=== PATIENT | male | born 1990 | race Caucasian/White ===

== ENCOUNTER 2019-07-07 19:17 | Emergency (ER) | payer SELFPAY ==
--- NOTE | 2019-07-07 20:13 | RADIOLOGY REPORT (SQ) ---
EXAM DESCRIPTION: XR CHEST 1 VIEW COMPLETED DATE/TME: 07/07/2019 00:00 CLINICAL HISTORY: 28 years, Male, fever COMPARISON: None. NUMBER OF VIEWS: One TECHNIQUE: Single frontal view of the chest was obtained portably LIMITATIONS: None. FINDINGS: Cardiac and mediastinal contours are normal in appearance. Lungs are clear. No pleural effusion or pneumothorax. IMPRESSION: No acute disease. copyright 2010 [employer]- All Rights Reserved
[2019-07-07] MEDS ORDERED: ONDANSETRON HCL INJ/PF 4 MG/2 ML SDV IV ONE (20:24)
[2019-07-07] MEDS ORDERED: NORMAL SALINE 1000 ML 1,000 ML IV ONE ×3 (20:24→21:58)
--- NOTE | 2019-07-07 20:30 | ER Document Report ---
ED General - General Chief Complaint: Nausea/Vomiting Stated Complaint: FEVER,VOMITTING Time Seen by Provider: 07/07/19 20:08 Primary Care Provider: PARISH LE [NO LOCAL MD] - Follow up as needed Notes: Patient is a 28 year old male that comes to the Emergency Department for chief complaint of vomiting persistently since last night, he states he has had a mild cough and some body aches as well. He denies fevers or chills, shortness of breath, chest pain, particular areas of abdominal pain, flank pain, sinus conge stion, headache. He states he was down in [place] and down in [place] within the past couple weeks pending a move. He denies any obvious exposures. He denies any daily medications or diagnosed medical history. He states that he smokes cigarettes, denies frequent alcohol or recent alcohol, denies recreational drugs. - Related Data Allergies/Adverse Reactions: Sulfa (Sulfonamide Antibiotics) Allergy (Verified 07/07/19 19:21) Past Medical History - General Information source: Patient - Social History Smoking Status: Never Smoker Frequency of alcohol use: None Drug Abuse: None Lives with: Family Family History: Reviewed & Not Pertinent Patient has suicidal ideation: No Patient has homicidal ideation: No - Medical History Medical History: Negative Surgical Hx: Negative - Immunizations Immunizations up to date: Yes Hx Diphtheria, Pertussis, Tetanus Vaccination: Yes Review of Systems - Review of Systems Constitutional: See HPI EENT: No symptoms reported Cardiovascular: No symptoms reported Respiratory: See HPI Gastrointestinal: See HPI Genitourinary: No symptoms reported Male Genitourinary: No symptoms reported Musculoskeletal: No symptoms reported Skin: No symptoms reported Hematologic/Lymphatic: No symptoms reported Neurological/Psychological: No symptoms reported Physical Exam - Vital signs Vitals: Temp Pulse Resp BP Pulse Ox 99.9 F 140 H 18 169/110 H 98 07/07/19 19:18 07/07/19 19:18 07/07/19 19:18 07/07/19 19:18 07/07/19 19:18 - Notes Notes: GENERAL: Alert but somewhat pale appearing HEAD: Normocephalic, atraumatic. EYES: Pupils equal, round, and reactive to light. Extraocular movements intact. ENT: Oral mucosa parched, tongue midline. Oropharynx unremarkable. Airway patent. LUNGS: Clear to auscultation bilaterally, no wheezes, rales, or rhonchi. No respiratory distress. HEART: Tachycardia, normal rhythm, no murmur ABDOMEN: Generalized tenderness of the upper abdomen, lower abdomen is benign. Bowel sounds are present. GENITOURINARY: Deferred EXTREMITIES: Moves all 4 extremities spontaneously. No edema, normal radial and dorsalis pedis pulses bilaterally. No cyanosis. BACK: no cervical, thoracic, lumbar midline tenderness. No saddle anesthesia, normal distal neurovascular exam. Moves all extremities in full range of motion. NEUROLOGICAL: Alert and oriented x3. Normal speech. Cranial nerves II through XII grossly intact. PSYCH: Normal affect, normal mood. SKIN: Pale Course - Re-evaluation Re-evalutation: Patient initially slightly pale, has parched mucous membranes, he is very tachycardic. He has generalized upper abdominal pain. No specific area of guarding, lower abdomen is benign. No fever. Chest x-ray reviewed and negative. Patient does not endorse any particular cough, has had occasional coughing in between vomiting. No fever or congestion. No recent travel or exposures. CBC unremarkable, chemistry shows elevated LFTs, elevated lipase borderline in the 300s, slightly elevated bilirubin. Anion gap is elevated at 27. Patient given multiple IV fluid boluses. He was given nausea medication. After this he was able to urinate. Urine shows a lot of ketones. Because of abnormal labs with upper abdominal pain ultrasound of the abdomen was performed, borderline common bile duct, no cholecystitis or cholelithiasis, no concerning acute findings. Chest x-ray negative. On evaluation patient is feeling much improved but still slightly nauseated. He was treated again, he will be given p.o. medications, chemistry will be repeated to be trended, discussed with Dr. Napier. On reevaluation patient is tolerated p.o. without any difficulty, he is eating now as well. Tachycardia resolved. Repeat labs show low glucose, much improved anion gap, improved bilirubin and LFTs. Lipase is slightly increased but symptoms are gone, abdomen is nontender, patient is not vomiting. Potassium is now low at 2.8 but EKG does not show any concerning changes. Discussed with Dr. Napier again. Patient will have his [facility], discussed medications, suspected viral illness, follow-up, return precautions. I did discuss potential COVID-19 testing but this was deferred, mainly because patient has not had any sore throat, particular cough, fever, and only the vomiting. Patient states understanding and agreement with plan. Stable and well-appearing at time of discharge. - Vital Signs Vital signs: Temp Pulse Resp BP Pulse Ox 98.8 F 77 14 140/80 H 99 07/08/19 03:01 07/08/19 03:01 07/08/19 03:01 07/08/19 03:01 07/08/19 03:01 - Laboratory Result Diagrams: 07/07/19 21:08 07/08/19 00:54 Laboratory results interpreted by me: 07/07/19 07/07/19 07/07/19 21:08 21:08 22:02 MCH 34.7 H RDW 15.5 H Plt Count 149 L Lymph % (Auto) 9.5 L Seg Neutrophils % 80.9 H Potassium 3.5 L Chloride 88 L Carbon Dioxide Anion Gap 27 H Glucose Calcium 10.7 H Total Bilirubin 2.0 H Direct Bilirubin 0.7 H AST 119 H ALT 159 H Total Protein 9.1 H Albumin 5.6 H Lipase 306.0 H Urine Protein >=500 H Urine Ketones 80 H Urine Blood MODERATE H Urine Urobilinogen 2.0 H 07/08/19 00:54 MCH RDW Plt Count Lymph % (Auto) Seg Neutrophils % Potassium 2.8 L* Chloride Carbon Dioxide 20 L Anion Gap Glucose 66 L Calcium 8.3 L Total Bilirubin 1.6 H Direct Bilirubin 0.6 H AST 83 H ALT 108 H Total Protein Albumin Lipase 427.3 H Urine Protein Urine Ketones Urine Blood Urine Urobilinogen Discharge - Discharge Clinical Impression: Dehydration, Hypokalemia Vomiting Qualifiers: Vomiting type: unspecified Vomiting Intractability: non-intractable Nausea presence: with nausea Qualified Code(s): R11.2 - Nausea with vomiting, unspecified Condition: Stable Disposition: HOME, SELF-CARE Additional Instructions: Your work-up is overall reassuring, this is most likely viral and should simply resolve with time. You have been treated for dehydration. Start with bland food and plenty of fluids, take medications as prescribed, rest. You were given a narcotic pain medication tonight for your symptoms of abdominal pain. Your potassium was low because of the vomiting, increase potassium in your diet (bananas, tomatoes, etc). Your liver function tests and lipase were elevated, this was most likely from the vomiting as well, however this needs to be rechecked with close primary care follow-up. Please call your primary care provider to have this rechecked within the next week. Return if you worsen including severe developing abdominal pain, uncontrolled vomiting, spiking fever, or any other concerning or worsening symptoms. Prescriptions: Famotidine [Pepcid] 20 mg PO BID 7 Days #14 tablet Ondansetron [Zofran Odt 4 mg Tablet] 1 - 2 tab PO Q4H PRN #15 tab.rapdis PRN Reason: For Nausea/Vomiting Referrals: LOCALMD,NO [NO LOCAL MD] - Follow up as needed
[2019-07-07 21:20] LABS: ABSOLUTE MONOCYTES (AUTO) 0.9 10^3/uL (0.1-1.4); ABSOLUTE NEUT (AUTO) 8.2 10^3/uL (1.7-8.2); BASOPHILS % (AUTO) 0.5 % (0-2); EOSINOPHILS % (AUTO) 0.1 % (0-6); HEMATOCRIT 46.8 % (37.9-51.0); HEMOGLOBIN 16.9 g/dL (13.5-17.0); LYMPHOCYTES % (AUTO) 9.5 % (13-45); MEAN CORPUSCULAR HEMOGLOBIN 34.7 pg (27.0-33.4); MEAN CORPUSCULAR VOLUME 96 fl (80-97); PLATELET COUNT 149 10^3/uL (150-450); RED BLOOD COUNT 4.86 10^6/uL (4.35-5.55); RED CELL DISTRIBUTION WIDTH 15.5 % (11.5-14.0); SEGMENTED NEUTROPHILS % (AUTO) 80.9 % (42-78); TOTAL CELLS COUNTED % (AUTO) 100 %; WHITE BLOOD COUNT 10.1 10^3/uL (4.0-10.5)
[2019-07-07 21:37] LABS: ALBUMIN 5.6 g/dL (3.5-5.0); ALKALINE PHOSPHATASE 86 U/L (38-126); ASPARTATE AMINO TRANSFERASE 119 U/L (17-59); BILIRUBIN,DIRECT 0.7 mg/dL (0.0-0.4); BLOOD UREA NITROGEN 13 mg/dL (7-20); CALCIUM 10.7 mg/dL (8.4-10.2); GLUCOSE 76 mg/dL (75-110); POTASSIUM 3.5 mmol/L (3.6-5.0); TOTAL PROTEIN 9.1 g/dL (6.3-8.2)
[2019-07-07 21:43] LABS: ANION GAP 27 (5-19); CHLORIDE 88 mmol/L (98-107)
[2019-07-07 21:44] LABS: CARBON DIOXIDE 24 mmol/L (22-30)
[2019-07-07 22:03] LABS: A TYPE INFLUENZA AG NEGATIVE (NEGATIVE); B INFLUENZA AG NEGATIVE (NEGATIVE)
[2019-07-07 22:47] LABS: APPEARANCE,URINE CLEAR; BILIRUBIN,URINE NEGATIVE (NEGATIVE); COLOR,URINE YELLOW; GLUCOSE, URINE NEGATIVE (NEGATIVE); KETONES,URINE 80 mg/dL (NEGATIVE); LEUKOCYTE ESTERASE,URINE NEGATIVE (NEGATIVE); NITRITE,URINE NEGATIVE (NEGATIVE); PROTEIN,URINE >=500 mg/dL (NEGATIVE); URINE SPECIFIC GRAVITY 1.017
[2019-07-07] MEDS ORDERED: DIPHENHYDRAMINE HCL 50 MG/ML VIAL IV ONE (23:22)
[2019-07-07] MEDS ORDERED: METOCLOPRAMIDE HCL INJ/PF 10 MG/2 ML SDV IV ONE (23:22)
--- NOTE | 2019-07-08 00:28 | RADIOLOGY REPORT (SQ) ---
EXAM DESCRIPTION: Ultrasound abdomen Limited CLINICAL HISTORY: 28 years Male vomiting, elevated bili and LFTs TECHNIQUE: Right upper quadrant ultrasound was performed. COMPARISON: None. FINDINGS: Examination is technically limited due to patient body habitus and overlying bowel gas. Pancreas: Poorly visualized due to overlying bowel gas. Liver: Heterogeneous in appearance, measuring up to 16.8 cm. Portal venous flow is hepatopedal, normal. Gallbladder: normal with no gallstones or sonographic evidence for acute cholecystitis. No pericholecystic fluid. No sonographic Guerrero's sign. Common bile duct: Borderline enlarged measuring up to 5.9 mm. Right kidney: Poorly visualized measuring up to 11.8 cm. No hydronephrosis. IMPRESSION: 1. Technically limited evaluation. Borderline enlargement of the common bile duct is a nonspecific finding. Consider attention on follow-up. If more detailed immediate evaluation is required, MRCP could be considered.
[2019-07-08] MEDS ORDERED: OXYCODONE-ACETAMINOPHEN 5-325 MG TABLET PO ONE (00:42)
[2019-07-08] MEDS ORDERED: SUCRALFATE 1 GM TABLET PO ONE (00:42)
[2019-07-08] MEDS ORDERED: OXYCODONE HCL IR 5 MG TABLET PO ONE (00:42)
[2019-07-08 01:31] LABS: ALBUMIN 3.9 g/dL (3.5-5.0); ALKALINE PHOSPHATASE 58 U/L (38-126); ANION GAP 19 (5-19); ASPARTATE AMINO TRANSFERASE 83 U/L (17-59); BILIRUBIN,DIRECT 0.6 mg/dL (0.0-0.4); BILIRUBIN,TOTAL 1.6 mg/dL (0.2-1.3); BLOOD UREA NITROGEN 10 mg/dL (7-20); CALCIUM 8.3 mg/dL (8.4-10.2); CARBON DIOXIDE 20 mmol/L (22-30); CHLORIDE 99 mmol/L (98-107); TOTAL PROTEIN 6.5 g/dL (6.3-8.2)
[2019-07-08 01:56] LABS: GLUCOSE 66 mg/dL (75-110); POTASSIUM 2.8 mmol/L (3.6-5.0)
[2019-07-08] MEDS ORDERED: POTASSIUM CHLORIDE 10 MEQ TABLET.ER PO ONE (01:58)
[2019-07-08] MEDS ORDERED: ONDANSETRON ODT 4 MG TAB (6 TAB/ER DISP) PO PRN (02:23)
[2019-07-08 03:02] VITALS: BP 140/80
--- NOTE | 2019-07-08 08:19 | EKG REPORT ---
SEVERITY:- ABNORMAL ECG - SINUS RHYTHM INCOMPLETE RIGHT BUNDLE BRANCH BLOCK INFERIOR Q WAVES, PROBABLY NORMAL VARIATION : Confirmed by: Ronn Farnsworth MD 08-Jul-2019 08:19:21
== END 2019-07-08 03:02 | disposition home or self-care (01) ==
LOC: ER 19:17
DX: E86.0 Dehydration (principal); E87.6 Hypokalemia; R11.2 Nausea with vomiting, unspecified; R50.9 Fever, unspecified; R05 Cough; M79.10 Myalgia, unspecified site; R10.10 Upper abdominal pain, unspecified; F17.210 Nicotine dependence, cigarettes, uncomplicated; Z88.2 Allergy status to sulfonamides
CPT/HCPCS: 93005; 99284; 96361; 96374; 96375; 36415; 87070; 87880; 83690; 85025; 80053; 81001; 87804; 71045; 76705; 93010; J1200; J2765; J2405; J7030